=== PATIENT | male | born 1940 | race Caucasian/White ===

== ENCOUNTER 2021-03-16 18:06 | Emergency (ER) | payer MEDICARE ==
[~2021-03-16] VITALS: Ht 172.7 cm; Wt 59.1 kg
[2021-03-16 18:49] VITALS: BP 159/78; PULSE 78; TEMP 98.4
== END 2021-03-16 19:18 | disposition home or self-care (01) ==
LOC: COL.ER 18:06
DX: T17.928A Food in respiratory tract, part unspecified causing other injury, initial encounter (principal); I10 Essential (primary) hypertension; Z87.891 Personal history of nicotine dependence

== ENCOUNTER 2024-03-05 11:16 | Day surgery (SDC) | payer MEDICARE ==
[~2024-03-05] VITALS: Ht 170.2 cm; Wt 70.8 kg
[~2024-03-05 11:16] MED LIST: LR 1,000 ML IV SCH; Ondansetron 4 MG/2 ML VIAL IV PRN
[2024-03-05] MEDS ORDERED: L-THEANINE200 MG PO (13:09)
[2024-03-05] MEDS ORDERED: ASPIRIN 32325 MG/TAB PO (13:10)
[2024-03-05] MEDS ORDERED: MULTI VITAMINS1 TAB PO (13:11)
[2024-03-05] MEDS ORDERED: COZAAR 25MG25 MG/TAB PO (13:12)
[2024-03-05] MEDS ORDERED: Lidocaine PF 2% (20 MG/ML) 5 ML VIAL ONE (13:13)
[2024-03-05] MEDS ORDERED: NIASPAN1000 MG PO (13:13)
[2024-03-05] MEDS ORDERED: ZOCOR 20MG20 MG PO (13:14)
[2024-03-05] MEDS ORDERED: TOPROL XL 25MG25 MG PO (13:15)
[2024-03-05 13:50] VITALS: BP 170/87; PULSE 67
[2024-03-05 14:05] VITALS: BP 170/85; PULSE 62
[2024-03-05 14:25] VITALS: BP 175/88; PULSE 63
[2024-03-05 16:03] VITALS: BP 176/78; PULSE 67; TEMP 97.7
--- NOTE | 2024-03-05 16:08 | NUR ---
1350 PATIENT RETURNS TO [facility] VIA CART. PT AWAKE AND ALERT. RESPIRATIONS UNLABORED. AMBULATED TO RECLINER CHAIR WITH 2:1 SBA. PT DENIES NAUSEA OR ABDOMINAL PAIN. HOOKED UP TO MONITOR AND VS OBTAINED. CALL LIGHT AT SIDE AND FRIEND (BUD) PRESENT. 1400 PATIENT TOLERATING WATER WITHOUT NAUSEA OR DIFFICULTY SWALLOWING. 1410 IN ROOM SPEAKING WITH PATIENT. 1420 D/C INSTRUCTIONS REVIEWED WITH PATIENT. PT VERBALIZED UNDERSTANDING AND A COPY OF INSTRUCTIONS PROVIDED IN D/C FOLDER. 1430 PATIENT DRESSES SELF. 1445 PATIENT DISCHARGED FROM UNIT VIA W/C TO A PERSONAL VEHICLE. PT LEFT HOSPITAL IN STABLE CONDITION.
== END 2024-03-05 14:45 | disposition home or self-care (01) ==
LOC: SDCO 11:16
DX: K22.2 Esophageal obstruction (principal); K44.9 Diaphragmatic hernia without obstruction or gangrene; K29.31 Chronic superficial gastritis with bleeding; Z79.82 Long term (current) use of aspirin; Z87.891 Personal history of nicotine dependence
CPT/HCPCS: J2704